=== PATIENT | female | born 1990 | race Caucasian/White ===

== ENCOUNTER 2017-02-05 14:55 | Emergency (ER) | payer MEDICAID, OTHER ==
[~2017-02-05] VITALS: Ht 160 cm; Wt 54.7 kg
[2017-02-05 16:10] LABS: HEMOGLOBIN 13.3 g/dL (11.7-16.4)
[2017-02-05 16:18] LABS: BLOOD UREA NITROGEN 13 mg/dL (7-18)
[2017-02-05 17:12] VITALS: BP 110/65
== END 2017-02-05 17:15 | disposition home or self-care (01) ==
LOC: ED 16:40
DX: N30.90 Cystitis, unspecified without hematuria (principal); N83.291 Other ovarian cyst, right side; Z87.440 Personal history of urinary (tract) infections
CPT/HCPCS: 36415; 76830; 80048; 81001; 82040; 84703; 85025; 87086